=== PATIENT | male | born 1955 | race Caucasian/White ===

== ENCOUNTER 2018-03-30 07:47 | Day surgery (SDC) | payer OTHER ==
[2018-03-30] MEDS ORDERED: ASPIRIN EC 325 MG TAB PO ONE (07:49)
[2018-03-30] MEDS ORDERED: diphenhydrAMINE 25 MG CAP PO ONE (07:49)
[2018-03-30] MEDS ORDERED: FAMOTIDINE 20 MG TAB PO ONE (07:49)
[2018-03-30] MEDS ORDERED: DIAZEPAM 5 MG TAB PO ONE (07:49)
[2018-03-30] MEDS ORDERED: NS 1,000 ML IV ONE (07:49)
--- NOTE | 2018-03-30 08:06 | CPEKG ---
Heart Rate: 65 RR Interval: 923 P-R Interval: 168 QRSD Interval: 118 QT Interval: 412 QTC Interval: 429 P Sayner: 53 QRS Sayner: -43 T Wave Sayner: 53 EKG Severity - ABNORMAL ECG - EKG Impression: SINUS RHYTHM EKG Impression: LEFT ANTERIOR FASCICULAR BLOCK EKG Impression: PROBABLE LEFT VENTRICULAR HYPERTROPHY EKG Impression: INTRAVENTRICULAR CONDUCTION DELAY Electronically Signed By: Luis Mullins 30-Mar-2018 08:30:55
--- NOTE | 2018-03-30 08:22 | PDHPUP ---
History & Physical Update H&P update statement: This history and physical update is based on an assessment of the patient which was completed after admission or registration (within 24 hours), but prior to the surgery/procedure. H&P update: H&P reviewed & patient examined (Abnormal MPI suggesting anterior ischemia with history of LAD diagonal PCI history of overall 5 stents), no change in patient's condition since H&P completed
--- NOTE | 2018-03-30 08:22 | PDPROPOC ---
Sedation Plan of Care Sedation Plan of Care: vital signs stable, mental status noted, patient educated of risks, benefits, alternatives, patient can tolerate sedation ASA Classification: ASA 2 Planned drugs: fentanyl, midazolam Mallampati Score: Class 1 Mallampati Reference Image: Patient passed 3-3-2 rule?: Yes
[2018-03-30] MEDS ORDERED: LIDOCAINE 1% 300 MG/30 ML SDV ONE (08:31)
[2018-03-30] MEDS ORDERED: fentaNYL 100 MCG/2 ML INJ ONE (08:31)
[2018-03-30] MEDS ORDERED: HEPARIN 10,000 UNIT/10 ML MDV (1,000 UNIT/ML) ONE (08:32)
[2018-03-30] MEDS ORDERED: MIDAZOLAM 2 MG/2 ML VIAL ONE (08:32)
[2018-03-30] MEDS ORDERED: VERAPAMIL 5 MG/2 ML VIAL ONE (08:32)
[2018-03-30] MEDS ORDERED: IOPAMIDOL (ISOVUE 370) 100 ML BTL IV ONE (08:33)
[2018-03-30 08:45] LABS: INR 1.04 (0.83-1.16); PROTIME(PATIENT) 13.8 SEC (12.0-15.0)
[2018-03-30 09:30] LABS: PLATELET COUNT 198 10^3/uL (150-400)
[2018-03-30] MEDS ORDERED: ADENOSINE 90 MG/30 ML VIAL IV ONE (09:51)
--- NOTE | 2018-03-30 10:16 | PDDXCAT ---
Diagnostic Cath Note - . Date: 03/30/18 Photo Lab Specialist: Enrico Indication: Class I/II angina, intolerance to med therapy or failure to respond , High-risk criteria on noninvasive testing (choose option below) High-risk criteria on non-invasive testing: large, fixed perfusion defect w LV dilatation or increased lung uptake - Procedure Access: right wrist Procedure: left heart catheterization, coronary angiography, left ventriculogram - Materials Left Heart Cath size: 5F Left Heart Cath materials: pigtail, Eladio's R, other (TIGER) - Findings-Left Heart Catheterization LM: Unobstructed LAD: Proximal vessel is heavily stented with diffuse luminal irregularities up to 70%. Principal diagonal has a 90% stenosis at the ostium. LCX: Unobstructed RCA: Dominant: Luminal irregularities EDP: 15 mm of mercury LVEF: 65% Wall motion: Normal Complications: None Estimated blood loss: <50ml Closure method: TR Band Assessment: Critical proximal LAD diagonal disease associated with multiple previous proximal stents. Preserved LV systolic function. Crescendo angina with abnormal nuclear stress test Plan: FFR assessment for functional assessment of the LAD verses the diagonal. Bypass versus medical therapy. Intervention: After reviewing diagnostic angiograms it was elected to proceed with assessment of the LAD proper in the setting of nuclear imaging suggesting anterolateral ischemia not involving the apex to determine medical therapy versus surgery. Patient was administered heparin. Therapeutic ACT was confirmed. Using a 6 Vincentian JL4 guiding catheter left main coronary selectively intubated. The 0.014 FFR wire was calibrated appropriately. It was equalized outside the left main coronary artery. It was advanced across the LAD stents into the distal vessel. Patient was administered adenosine 140 micrograms/kilos per minute IV. FFR dramatically plunged to less than 0.68. Adenosine infusion was stopped. The wire was withdrawn. Final orthogonal angiogram showed JIMENA grade 3 flow. Conclusions: Diffuse LAD in stent restenosis associated with ostial diagonal. Recommend bypass grafting x2 with ongoing aggressive secondary prevention. Results discussed with patient's family. Will refer him to Dr. David Hightower. Patient Problems: Problems Problem Status Onset Angina of effort Acute Abnormal exercise myocardial perfusion study Acute History of placement of stent in LAD coronary artery Acute Coronary arteriosclerosis Acute
--- NOTE | 2018-03-30 14:30 | GCON ---
[f rep st] CONSULTATION DATE OF CONSULTATION: 03/30/2018 REFERRING PHYSICIAN: Pelon Weston MD Patient is seen at the request of Dr. Weston with the patient's permission. IMPRESSION: 1. Class 3 angina pectoris with restenosis in-stent of the LAD and diagonal. 2. Obesity. 3. Sleep apnea. 4. Hypertension. 5. Hyperlipidemia. 6. Hypothyroidism, controlled. RECOMMENDATIONS: This patient is being referred for surgical consideration with the mammary to his L AD. Risks at less than 1%, alternatives including continued medical therapy were reviewed at length with the patient and his . He is agreeable to proceed with surgery. Risk of blood transfusions 5%. He currently is on clopidogrel, which we will stop 5 days prior. CHIEF COMPLAINT: New onset of class 3 angina, relieved with rest. He does have a history of multipl e prior stents in the LAD system. PAST MEDICAL HISTORY: As stated. PAST SURGICAL HISTORY: Include throat reconstruction due to multiple infections, without aspiration, multiple orthopedic procedures, and appendectomy as a child. MEDICATIONS: On admission were clopidogrel, Cozaar, Crestor, aspirin, hydroxyzine, metoprolol, and S ynthroid. ALLERGIES: Denied. FAMILY HISTORY: Noncontributory. SOCIAL HISTORY: He does not drink. Does not smoke. 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 REVIEW OF SYSTEMS: Except for the chief complaint, he is asymptomatic and without complaints. PHYSICAL EXAM: GENERAL: Moderately obese, very pleasant middle-aged gentleman in no apparent distre ss. VITAL SIGNS: Blood pressure is 130/82, pulse 76, respirations 14, nonlabored. HEENT: Normocep halic, PERRLA, EOMI. NECK: Without bruit, adenopathy or thyromegaly. Carotid ultrasounds are pendi ng. LUNGS: Clear. ABDOMEN: Soft, nontender. Moderately protuberant. Bowel sounds are active. R ECTAL AND GENITAL: Exams were deferred. NEUROLOGICAL: He is grossly intact. Moves all extremities to command. EXTREMITIES: Pedal pulses are 2+ and symmetrical. Please see cath report for details. /[id number]/MODL
== END 2018-03-30 16:03 | disposition home or self-care (01) ==
LOC: FCATH 07:47
PROVIDERS: ATTEND Internal Medicine Interventional Cardiology
DX: T82.855A Stenosis of coronary artery stent, initial encounter (principal); I25.119 Atherosclerotic heart disease of native coronary artery with unspecified angina pectoris; E66.9 Obesity, unspecified; G47.30 Sleep apnea, unspecified; I10 Essential (primary) hypertension; E78.5 Hyperlipidemia, unspecified; E03.9 Hypothyroidism, unspecified
CPT/HCPCS: 71045; 93005; 93458; 93571; 93880; C1769; C1887; J0153; J1644; J2250; J3010; Q9967

== ENCOUNTER 2018-04-13 05:56 | Inpatient (IN) | payer OTHER ==
[~2018-04-13 05:56] MED LIST: NOREPINEPHRINE BITARTRATE 16 MG in NS 250 ML IV ONE
[2018-04-13] MEDS ORDERED: VERAPAMIL 5 MG, NITROGLYCERIN 2.5 MG, HEPARIN 500 UNIT, SODIUM BICARBONATE 0.2 MEQ in L... MISC ONE (06:00)
[2018-04-13] MEDS ORDERED: SODIUM BICARBONATE 20 MEQ, LIDOCAINE 1% 10 ML in NORMOSOL-R 1,000 ML MISC ONE (06:00)
[2018-04-13] MEDS ORDERED: PHENYLEPHRINE HCL 50 MG in NS 250 ML IV ONE (06:00)
[2018-04-13] MEDS ORDERED: INSULIN REGULAR HUMAN 100 UNIT in NS 100 ML IV ONE (06:00)
[2018-04-13] MEDS ORDERED: niCARdipine/NACL 200 ML IV ONE (06:00)
[2018-04-13] MEDS ORDERED: MANNITOL 25% 12.5 GM/50 ML VIAL IVP ONE (06:00)
[2018-04-13] MEDS ORDERED: AMINOCAPROIC ACID 5 GM/20 ML VIAL IV ONE (06:00)
--- NOTE | 2018-04-13 06:23 | PDHPUP ---
History & Physical Update H&P update statement: This history and physical update is based on an assessment of the patient which was completed after admission or registration (within 24 hours), but prior to the surgery/procedure. H&P update: H&P reviewed & patient examined, no change in patient's condition since H&P completed
[2018-04-13] MEDS ORDERED: ceFAZolin 2 GM/DEXTROSE 100 ML IV ONE (06:37)
[2018-04-13] MEDS ORDERED: MUPIROCIN 2% 22 GM OINT NS ONE (06:37)
[2018-04-13] MEDS ORDERED: CITRATE DEXTROSE SOLN 500 ML BAG MISC ONE (06:37)
[2018-04-13] MEDS ORDERED: CALCIUM CHLORIDE 1 GM/10 ML INJ ONE ×2 (06:38→06:40)
[2018-04-13] MEDS ORDERED: PROTAMINE SULFATE 50 MG/5 ML VIAL IVP ONE (06:38)
[2018-04-13] MEDS ORDERED: MILRINONE/DEXTROSE/100 ML BAG IV ONE (06:38)
[2018-04-13] MEDS ORDERED: NA BICARBONATE 50 MEQ/50 ML VIAL ONE (06:38)
[2018-04-13] MEDS ORDERED: AMIODARONE HCL 150 MG/3 ML VIAL ONE ×2 (06:39→06:41)
[2018-04-13] MEDS ORDERED: ceFAZolin 1 GM VIAL ONE (06:39)
[2018-04-13] MEDS ORDERED: LR 1,000 ML IV ONE (06:39)
[2018-04-13] MEDS ORDERED: DOPamine/DEXTROSE 400 MG/250 ML BAG IV ONE ×2 (06:39→12:23)
[2018-04-13] MEDS ORDERED: ADENOSINE 6 MG/2 ML VIAL ONE (06:39)
[2018-04-13] MEDS ORDERED: HEPARIN 10,000 UNIT/10 ML MDV (1,000 UNIT/ML) ONE ×2 (06:39→06:40)
[2018-04-13] MEDS ORDERED: niCARdipine/NACL/200 ML BAG IV ONE (06:39)
[2018-04-13] MEDS ORDERED: CITRATE DEXTROSE SOLN 500 ML BAG ONE (06:40)
[2018-04-13] MEDS ORDERED: NITROGLYCERIN/D5W 50 MG/250 ML BOTTLE IV ONE (06:40)
[2018-04-13] MEDS ORDERED: ALBUMIN 5% 250 ML BOTTLE IV ONE (06:40)
[2018-04-13] MEDS ORDERED: LIDOCAINE 2% 100 MG/5 ML SYR ONE (06:40)
[2018-04-13] MEDS ORDERED: methylPREDNISolone SOD SUCC 1 GM/8 ML VIAL ONE (06:41)
[2018-04-13] MEDS ORDERED: MAGNESIUM SULFATE 1 GM/2 ML VIAL ONE (06:41)
[2018-04-13] MEDS ORDERED: PAPAVERINE HCL 60 MG/2 ML SDV ONE (06:51)
[2018-04-13] MEDS ORDERED: VERAPAMIL 5 MG/2 ML VIAL ONE (06:51)
[2018-04-13] MEDS ORDERED: MIDAZOLAM 2 MG/2 ML VIAL IVP ONE (07:01)
--- NOTE | 2018-04-13 07:02 | PDANEPAE ---
ANE History of Present Illness cab ANE Past Medical History - Cardiovascular History Hx Hypertension: Yes Hx Arrhythmias: No Hx Chest Pain: Yes Hx Coronary Artery / Peripheral Vascular Disease: Yes Hx CHF / Valvular Disease: No Hx Palpitations: No Cardiovascular History Comment: CARDIAC STENTS X5. CAD. HYPERCHOLESTEROLEMIA. HTN - Pulmonary History Hx COPD: No Hx Asthma/Reactive Airway Disease: No Hx Recent Upper Respiratory Infection: No Hx Oxygen in Use at Home: No Hx Sleep Apnea: Yes Sleep Apnea Screening Result - Last Documented: Positive Pulmonary History Comment: POS TANNER - W/CPAP - Neurologic History Hx Cerebrovascular Accident: No Hx Seizures: No Hx Dementia: No Neurologic History Comment: MIGRAINES IN TEENS - Endocrine History Hx Diabetes: No Hypothyroid: Yes Hyperthyroid: No Endocrine History Comment: HYPOTHYROIDISM - Renal History Hx Renal Disorders: No - Liver History Hx Hepatic Disorders: No - Neurological & Psychiatric Hx Hx Neurological and Psychiatric Disorders: Yes Neurological / Psychiatric History Comment: ANXIETY IN PAST - Cancer History Hx Cancer: No - Congenital Disorder History Hx Congenital Disorders: No - GI History Hx Gastrointestinal Disorders: No - Other Health History Other Health History: DRY SKIN. NEG - Chronic Pain History Chronic Pain: No - Surgical History Prior Surgeries: CARDIAC CATH APRIL 2018. CARDIAC STENT X5 IN PAST. LGE SOULEYMANE TOES FUSED. PALLATE RECONSTRUCTION. CARPAL TUNNEL. APPENDECTOMY ANE Review of Systems Review of systems is: negative Review of Systems: - Exercise capacity METS (RN): 4 METS ANE Patient History - Allergies Allergies/Adverse Reactions: No Known Allergies Allergy (Verified 04/06/18 13:16) - Home Medications Home medications: home medication list seen and reviewed Home Medications: Aspirin [Aspirin 81mg (*)] 81 mg PO HS 03/30/18 [Last Taken 03/29/18 21:00] Levothyroxine [Synthroid 200 mcg (*)] 200 mcg PO DAILY06 03/30/18 [Last Taken Unknown] Losartan Potassium [Cozaar 25 mg (*)] 25 mg PO HS 03/30/18 [Last Taken 03/29/18 21:00] Metoprolol Succinate Xr [Toprol Xl 25 mg (*)] 12.5 mg PO HS 03/30/18 [Last Taken 03/29/18 21:00] Rosuvastatin Calcium [Crestor 20mg (*)] 10 mg PO HS 03/30/18 [Last Taken 21:00] Clopidogrel Bisulfate [Plavix (*)] 75 mg PO HS 04/06/18 [Last Taken Unknown] Herbals/Supplements -Info Only 1 each PO DAILY 04/06/18 [Last Taken Unknown] Levothyroxine [Synthroid 25 mcg (*)] 25 mcg PO DAILY06 04/06/18 [Last Taken Unknown] Loratadine [Claritin 10 mg] 10 mg PO DAILY PRN 04/06/18 [Last Taken Unknown] - NPO status NPO Status: no food or drink >8 hours NPO Since - Liquids (Date): 04/12/18 NPO Since - Liquids (Time): 23:59 NPO Since - Solids (Date): 04/12/18 NPO Since - Solids (Time): 19:00 - Smoking Hx Smoking Status: Never smoked - Family Anes Hx Family Hx Anesthesia Complications: NONE ANE Labs/Vital Signs - Vital Signs Blood Pressure: 147/84 Heart Rate: 64 Respiratory Rate: 14 O2 Sat (%): 95 Height: 170.18 cm Weight: 99.79 kg ANE Physical Exam - Airway Mallampati Score: Class 2 Mouth exam: normal dental/mouth exam - Pulmonary Pulmonary: no respiratory distress - Cardiovascular Cardiovascular: regular rate and rhythym - ASA Status ASA Status: III ANE Anesthesia Plan Anesthesia Plan: general endotracheal anesthesia Lines/Monitors: arterial line, central line, BIN
[2018-04-13] MEDS ORDERED: SUCCINYLCHOLINE CHLORIDE 200 MG/10 ML SYR IVP ONE (07:11)
[2018-04-13] MEDS ORDERED: ROCURONIUM 100 MG/10 ML VIAL ONE (07:11)
[2018-04-13] MEDS ORDERED: PHENYLEPHRINE 10 MG/ML SDV ONE (07:12)
[2018-04-13] MEDS ORDERED: LIDOCAINE 2% 5 ML SDV ONE (07:12)
[2018-04-13] MEDS ORDERED: EPINEPHrine 1 MG/ML INJ ONE (07:12)
[2018-04-13] MEDS ORDERED: PROPOFOL 200 MG/20 ML VIAL ONE (07:17)
[2018-04-13] MEDS ORDERED: fentaNYL 250 MCG/5 ML INJ ONE ×2 (07:17)
[2018-04-13] MEDS ORDERED: MIDAZOLAM 2 MG/2 ML VIAL ONE ×2 (07:30→07:44)
[2018-04-13] MEDS ORDERED: MINERAL OIL 10 ML VIAL ONE (08:43)
[2018-04-13] MEDS ORDERED: DEXMEDETOMIDINE IN 0.9 % NACL 100 ML IV SCH (11:00)
[2018-04-13] MEDS ORDERED: MEPERIDINE 25 MG/0.5 ML AMP IVP PRN (11:29)
[2018-04-13] MEDS ORDERED: POTASSIUM Cl (KCl) 50 ML IV PRN (11:29)
[2018-04-13] MEDS ORDERED: SODIUM CL NASAL 45 ML BTL EACHNARE PRN (11:29)
[2018-04-13] MEDS ORDERED: ONDANSETRON 4 MG/2 ML VIAL IVP PRN (11:29)
[2018-04-13] MEDS ORDERED: D50W 25 GM/50 ML SYR IVP PRN (11:29)
[2018-04-13] MEDS ORDERED: CEPACOL LOZENGE PO PRN (11:29)
[2018-04-13] MEDS ORDERED: POLYETHYLENE GLYCOL 3350 17 GM PKT PO PRN (11:29)
[2018-04-13] MEDS ORDERED: METOCLOPRAMIDE 10 MG/2 ML VIAL IVP PRN (11:29)
[2018-04-13] MEDS ORDERED: LACTULOSE 20 GM/30 ML UDCUP PO PRN (11:29)
[2018-04-13] MEDS ORDERED: ACETAMINOPHEN 650 MG SUPP PR PRN (11:29)
[2018-04-13] MEDS ORDERED: PANTOPRAZOLE SODIUM 40 MG VIAL IVP ONE (11:29)
[2018-04-13] MEDS ORDERED: MAGNESIUM HYDROXIDE 30 ML UDCUP PO PRN (11:29)
[2018-04-13] MEDS ORDERED: BISACODYL 10 MG SUPP PR PRN (11:29)
[2018-04-13] MEDS ORDERED: niCARdipine/NACL 200 ML IV SCH (11:30)
[2018-04-13] MEDS ORDERED: INSULIN REGULAR HUMAN 100 UNIT in NS 100 ML IV SCH (11:30)
[2018-04-13] MEDS ORDERED: NS 1,000 ML IV SCH (11:30)
--- NOTE | 2018-04-13 11:58 | PDMN ---
Medical Necessity Medical necessity: S390 CABG. 63 y/o pt w/ CABG X2, left saphenous vein graft and left internal mammary artery graft. Endoscopic vein harvest, ligation of left atrial appendage secondary coronary artery disease. Medicare Inpatient Only, 4 days.
[2018-04-13] MEDS: ALBUMIN 5% 250 ML IV PRN ×2 (12:00→13:00)
[2018-04-13] MEDS ORDERED: NALOXONE HCL 0.4 MG/ML INJ IVP PRN (12:07)
--- NOTE | 2018-04-13 12:07 | POSTANESTH ---
Post Anesthetic Evaluation Cardiovascular Status: Normal, Stable, Tx Hyper/Hypo-tension Respiratory Status: Normal, Stable, Other, See Comment (stable on vent) Level of Consciousness/Mental Status: Moderately Sleepy Pain Control: Adequate, Prn Tx Ordered Nausea/Vomiting Control: Adequate, Prn Tx Ordered Complications Possibly Related to Anesthesia: None Noted
--- NOTE | 2018-04-13 12:18 | CPEKG ---
Heart Rate: 52 RR Interval: 1154 P-R Interval: 180 QRSD Interval: 120 QT Interval: 448 QTC Interval: 417 P Reading: 26 QRS Reading: -39 T Wave Reading: -11 EKG Severity - ABNORMAL ECG - EKG Impression: SINUS RHYTHM EKG Impression: NONSPECIFIC IVCD WITH LAD Electronically Signed By: David Pierre 13-Apr-2018 16:23:20
[2018-04-13] MEDS ORDERED: ALBUMIN 5% 250 ML IV ONE (14:00)
--- NOTE | 2018-04-13 16:02 | POSTANESTH ---
Post Anesthetic Evaluation Cardiovascular Status: Other, See Comment (stable on dopamine) Respiratory Status: Normal, Stable Level of Consciousness/Mental Status: Can Participate in Eval Pain Control: Adequate, Prn Tx Ordered Nausea/Vomiting Control: Adequate, Prn Tx Ordered Complications Possibly Related to Anesthesia: None Noted
[2018-04-13] MEDS: fentaNYL 100 MCG/2 ML INJ IVP PRN ×4 (16:30→22:55)
[2018-04-13] MEDS: ceFAZolin 2 GM/DEXTROSE 100 ML IV SCH ×2 (16:59→23:24)
[2018-04-13] MEDS: SENNOSIDES/DOCUSATE SODIUM TAB PO SCH (19:23)
[2018-04-13] MEDS: MUPIROCIN 2% 22 GM OINT NS SCH (20:37)
[2018-04-14] MEDS: fentaNYL 100 MCG/2 ML INJ IVP PRN ×6 (00:22→05:52)
[2018-04-14 03:44] LABS: PLATELET COUNT 196 10^3/uL (150-400)
[2018-04-14] MEDS: HEPARIN 5,000 UNIT/0.5 ML INJ SC SCH ×3 (05:16→20:29)
[2018-04-14] MEDS: LEVOTHYROXINE 25 MCG TAB PO SCH (05:24)
[2018-04-14] MEDS ORDERED: LEVOTHYROXINE 200 MCG TAB PO SCH (06:00)
[2018-04-14] MEDS ORDERED: ALBUMIN 5% 250 ML BOTTLE IV ONE (06:27)
[2018-04-14] MEDS ORDERED: ALBUMIN 5% 250 ML IV ONE ×2 (06:30→07:40)
[2018-04-14] MEDS ORDERED: KETOROLAC 30 MG/1 ML SDV IVP STA (06:42)
--- NOTE | 2018-04-14 06:43 | SOAPPROG ---
SOAP Progress Note Assessment/Plan: POD #1: CABGx2 (LAY-LAD, SVG-diag), ligation left atrial appendage, EVH L thigh CAD s/p CABGx2 - Beta-triny, statin, ASA, plavix for secondary prevention when appropriate - Wean dopamine for MAPs 65 - Chest tubes to bulbs, FC out, AL out once off pressors - PT/OT Acute blood loss anemia on chronic anemia - No transfusions needed, monitor DVT prophylaxis - heparin SQ/SCDs Subjective: c/o chest pain and hard to take deep breaths as a result. Objective: Vital Signs Temp Pulse Resp BP Pulse Ox 38.2 C 75 25 H 126/54 H 93 04/14/18 06:00 04/14/18 06:00 04/14/18 06:00 04/14/18 06:00 04/14/18 06:00 Laboratory Results 04/14/18 03:30 04/14/18 03:30 04/13/18 04/14/18 04/15/18 05:59 05:59 05:59 Intake Total 1461 Output Total 2085 Balance -624 Physical Exam - Physical Exam General Appearance: WD/WN, alert, mild distress EENT: No scleral icterus (R), No scleral icterus (L) Neck: normal inspection Respiratory: No respiratory distress Cardiac/Chest: regular rate, rhythm Abdomen: non-tender, soft, No distended Extremities: No pedal edema Neuro/Psych: no motor/sensory deficits, alert, normal mood/affect, oriented x 3 ICD10 Worksheet Patient Problems: Problems Problem Status Onset S/P CABG x 2 Acute Abnormal exercise myocardial perfusion study Acute Angina of effort Acute Coronary arteriosclerosis Acute History of placement of stent in LAD coronary artery Acute
[2018-04-14] MEDS ORDERED: HYDROmorphONE/DILAUDID 1 MG/ML INJ IVP PRN (06:47)
[2018-04-14] MEDS: ceFAZolin 2 GM/DEXTROSE 100 ML IV SCH ×3 (09:38→23:42)
[2018-04-14] MEDS: SENNOSIDES/DOCUSATE SODIUM TAB PO SCH ×2 (09:39→20:28)
[2018-04-14] MEDS: HYDROCODONE/APAP 5/325 TAB PO PRN ×3 (09:39→17:14)
[2018-04-14] MEDS: PANTOPRAZOLE SODIUM 40 MG TAB PO SCH (09:40)
[2018-04-14] MEDS: MUPIROCIN 2% 22 GM OINT NS SCH ×2 (10:19→20:39)
[2018-04-14] MEDS ORDERED: LORazepam 2 MG/ML INJ IVP ONE (11:11)
--- NOTE | 2018-04-14 12:12 | ASMTCASEMG ---
Living Arrangements What is your living Answers: With Spouse arrangement? Who do you live with? Type Of Residence What kind of residence do Answers: House you live in? Discharge Plan Comments Coordination Status Comments Notes: Patient is a 62yo male who was admitted for coronary artery bypass graft. PT/OT have been ordered. Awaiting therapies. D/C plan TBD. CM will follow. Date Signed: 04/14/2018 12:11 PM Electronically Signed By:Juany Edwards LCSW
--- NOTE | 2018-04-14 15:23 | ASMTCMCOM ---
CM Note CM Note Notes: Therapies have cleared pt to d/c without any needs. CM available to discuss w/ [facility] team if there are any changes or request for services. Plan: Independent Date Signed: 04/14/2018 03:23 PM Electronically Signed By:SARA Ojeda
[2018-04-14] MEDS: OXYCODONE/APAP 5/325 TAB PO PRN ×2 (15:32→19:04)
[2018-04-14] MEDS: ALPRAZolam 0.25 MG TAB PO PRN (17:14)
[2018-04-14] MEDS ORDERED: FUROSEMIDE 20 MG/2 ML VIAL IVP ONE (19:03)
[2018-04-14] MEDS ORDERED: ASPIRIN 81 MG CHEWABLE TAB PO SCH (21:00)
[2018-04-14] MEDS ORDERED: CLOPIDOGREL BISULFATE 75 MG TAB PO SCH (21:00)
[2018-04-14] MEDS ORDERED: KETOROLAC 30 MG/1 ML SDV IVP ONE (22:18)
[2018-04-14] MEDS: oxyCODONE IR 5 MG TAB PO PRN (23:29)
[2018-04-14] MEDS: METOPROLOL TARTRATE 25 MG TAB PO SCH (23:30)
[2018-04-15] MEDS: traMADol 50 MG TAB PO PRN (02:26)
[2018-04-15] MEDS: oxyCODONE IR 5 MG TAB PO PRN ×4 (04:33→21:33)
[2018-04-15] MEDS: LEVOTHYROXINE 25 MCG TAB PO SCH (04:34)
[2018-04-15] MEDS: ONDANSETRON DISINTEGRATING 4 MG TAB PO PRN (04:41)
--- NOTE | 2018-04-15 06:51 | CPEKG ---
Heart Rate: 87 RR Interval: 690 P-R Interval: 140 QRSD Interval: 102 QT Interval: 340 QTC Interval: 409 P Lincoln: 59 QRS Lincoln: -11 T Wave Lincoln: 65 EKG Severity - ABNORMAL ECG - EKG Impression: SINUS RHYTHM EKG Impression: ST ELEVATION SUGGESTS PERICARDITIS Electronically Signed By: Mir Kirkland 15-Apr-2018 11:18:08
[2018-04-15] MEDS: HYDROCODONE/APAP 5/325 TAB PO PRN (06:54)
[2018-04-15] MEDS: LEVOTHYROXINE 200 MCG TAB PO SCH (06:55)
--- NOTE | 2018-04-15 07:59 | SOAPPROG ---
SOAP Progress Note Assessment/Plan: POD #2: CABGx2 (LAY-LAD, SVG-diag), ligation left atrial appendage, EVH L thigh CAD s/p CABGx2 - Beta-triny, statin, ASA, plavix for secondary prevention when appropriate - Chest tubes out, PW clipped - PT/OT Acute blood loss anemia on chronic anemia - No transfusions needed, monitor DVT prophylaxis - heparin SQ/SCDs Post-op pericarditis - Diffuse ST elevation on EKG with pleuritic type pain - High dose ASA ordered Disposition - Home Tuesday/Tuesday without services Subjective: Pain better after tubes removed. Objective: Vital Signs Temp Pulse Resp BP Pulse Ox 37.1 C 81 18 131/72 H 93 04/15/18 07:57 04/15/18 07:57 04/15/18 07:57 04/15/18 07:57 04/15/18 07:57 Laboratory Results 04/14/18 03:30 04/15/18 07:00 04/14/18 04/15/18 04/16/18 05:59 05:59 05:59 Intake Total 1461 2387 Output Total 2085 1095 150 Balance -624 1292 -150 Physical Exam - Physical Exam General Appearance: WD/WN, alert, no apparent distress EENT: No scleral icterus (R), No scleral icterus (L) Neck: normal inspection Respiratory: No respiratory distress Abdomen: non-tender, soft, No distended Skin: normal color, warm/dry Extremities: pedal edema Neuro/Psych: no motor/sensory deficits, alert, normal mood/affect, oriented x 3 ICD10 Worksheet Patient Problems: Problems Problem Status Onset S/P CABG x 2 Acute Abnormal exercise myocardial perfusion study Acute Angina of effort Acute Coronary arteriosclerosis Acute History of placement of stent in LAD coronary artery Acute
[2018-04-15] MEDS: METOPROLOL TARTRATE 25 MG TAB PO SCH ×2 (08:39→20:40)
[2018-04-15] MEDS: ASPIRIN 325 MG TAB PO SCH ×4 (08:40→23:25)
[2018-04-15] MEDS: SENNOSIDES/DOCUSATE SODIUM TAB PO SCH ×2 (08:40→20:40)
[2018-04-15] MEDS: ENOXAPARIN 40 MG/0.4 ML SYR SC SCH (08:40)
[2018-04-15] MEDS: PANTOPRAZOLE SODIUM 40 MG TAB PO SCH (08:41)
[2018-04-15] MEDS: MUPIROCIN 2% 22 GM OINT NS SCH (08:53)
[2018-04-15] MEDS ORDERED: LORazepam 1 MG TAB PO PRN (09:00)
[2018-04-15] MEDS: FUROSEMIDE 40 MG TAB PO SCH (10:08)
[2018-04-15] MEDS: POTASSIUM CL 20 MEQ TAB PO SCH (10:08)
[2018-04-16] MEDS: oxyCODONE IR 5 MG TAB PO PRN ×5 (02:21→22:28)
[2018-04-16] MEDS: LEVOTHYROXINE 25 MCG TAB PO SCH (05:54)
[2018-04-16] MEDS: LEVOTHYROXINE 200 MCG TAB PO SCH (05:54)
[2018-04-16] MEDS: ASPIRIN 325 MG TAB PO SCH ×4 (05:54→23:09)
[2018-04-16] MEDS: ENOXAPARIN 40 MG/0.4 ML SYR SC SCH (07:21)
[2018-04-16] MEDS: SENNOSIDES/DOCUSATE SODIUM TAB PO SCH ×2 (07:21→20:36)
[2018-04-16] MEDS: METOPROLOL TARTRATE 25 MG TAB PO SCH (07:22)
[2018-04-16] MEDS: FUROSEMIDE 40 MG TAB PO SCH (07:22)
[2018-04-16] MEDS: PANTOPRAZOLE SODIUM 40 MG TAB PO SCH (07:22)
[2018-04-16] MEDS: POTASSIUM CL 20 MEQ TAB PO SCH (07:22)
[2018-04-16] MEDS ORDERED: FUROSEMIDE 40 MG/4 ML VIAL IVP ONE ×2 (08:35→16:13)
--- NOTE | 2018-04-16 08:37 | SOAPPROG ---
SOAP Progress Note Assessment/Plan: POD #3: CABGx2 (LAY-LAD, SVG-diag), ligation left atrial appendage, EVH L thigh CAD s/p CABGx2 - Beta-triny, statin, ASA, plavix for secondary prevention when appropriate - PT/OT Acute blood loss anemia on chronic anemia - No transfusions needed, monitor DVT prophylaxis - Heparin SQ/SCDs Post-op pericarditis - Diffuse ST elevation on EKG with pleuritic type pain - High dose ASA ordered with good effect Disposition - Home Tuesday/Tuesday without services Subjective: Pain less but still there. Denies SOB. Objective: Vital Signs Temp Pulse Resp BP Pulse Ox 37.4 C 106 H 20 140/74 H 91 L 04/16/18 03:31 04/16/18 03:31 04/16/18 03:31 04/16/18 03:31 04/16/18 03:31 Laboratory Results 04/14/18 03:30 04/15/18 07:00 04/15/18 04/16/18 04/17/18 05:59 05:59 05:59 Intake Total 2387 1850 Output Total 1095 950 Balance 1292 900 Physical Exam - Physical Exam General Appearance: WD/WN, alert, no apparent distress EENT: No scleral icterus (R), No scleral icterus (L) Neck: normal inspection Respiratory: No respiratory distress Cardiac/Chest: regular rate, rhythm Abdomen: normal bowel sounds, non-tender, soft Skin: normal color, warm/dry Extremities: pedal edema Neuro/Psych: no motor/sensory deficits, alert, normal mood/affect, oriented x 3 ICD10 Worksheet Patient Problems: Problems Problem Status Onset S/P CABG x 2 Acute Abnormal exercise myocardial perfusion study Acute Angina of effort Acute Coronary arteriosclerosis Acute History of placement of stent in LAD coronary artery Acute
[2018-04-16] MEDS ORDERED: METOPROLOL TARTRATE 25 MG TAB PO ONE (09:05)
[2018-04-16] MEDS: ALPRAZolam 0.25 MG TAB PO PRN ×2 (09:14→18:06)
[2018-04-16] MEDS ORDERED: AMIODARONE HCL 200 ML IV ONE (09:18)
[2018-04-16] MEDS ORDERED: AMIODARONE HCL 100 ML IV ONE (09:18)
--- NOTE | 2018-04-16 13:09 | ASMTCMCOM ---
CM Note CM Note Notes: Chart reviewed. Patient has been cleared for dc to home per therapies. Heart rhythm issues today, CM to follow. Plan: Likely home no needs Tuesday or Tuesday. Date Signed: 04/16/2018 01:08 PM Electronically Signed By:Rody Ojeda RN
[2018-04-16] MEDS ORDERED: METOPROLOL TARTRATE 5 MG/5 ML INJ IV ONE (13:30)
[2018-04-16] MEDS ORDERED: AMIODARONE HCL 540 MG in D5W 300 ML IV ONE (16:00)
[2018-04-16] MEDS ORDERED: METOPROLOL TARTRATE 25 MG TAB PO SCH (21:00)
[2018-04-17] MEDS: ALPRAZolam 0.25 MG TAB PO PRN (01:16)
[2018-04-17] MEDS: traMADol 50 MG TAB PO PRN ×3 (01:16→21:23)
[2018-04-17] MEDS: ASPIRIN 325 MG TAB PO SCH (05:36)
[2018-04-17] MEDS: oxyCODONE IR 5 MG TAB PO PRN (05:36)
[2018-04-17] MEDS: LEVOTHYROXINE 25 MCG TAB PO SCH (05:36)
[2018-04-17] MEDS: LEVOTHYROXINE 200 MCG TAB PO SCH (05:36)
[2018-04-17] MEDS ORDERED: AMIODARONE HCL 100 ML IV ONE (07:44)
[2018-04-17] MEDS ORDERED: METOPROLOL TARTRATE 50 MG TAB PO SCH (07:45)
--- NOTE | 2018-04-17 08:04 | SOAPPROG ---
SOAP Progress Note Assessment/Plan: POD #4: CABGx2 (LAY-LAD, SVG-diag), ligation left atrial appendage, EVH L thigh CAD s/p CABGx2 - Beta-triny, statin, ASA, plavix for secondary prevention - PT/OT Acute blood loss anemia on chronic anemia - No transfusions needed, monitor DVT prophylaxis - Heparin SQ/SCDs Post-op pericarditis - Diffuse ST elevation on EKG with pleuritic type pain - High dose ASA ordered with good effect Post-op paroxysmal atrial fibrillation - Continue beta-triny/amiodarone - AC held as on high-dose ASA Disposition - Plan once medically stable Subjective: No complaints. Hasn't been walking as was told not to. Objective: Vital Signs Temp Pulse Resp BP Pulse Ox 36.8 C 65 18 127/85 H 94 04/17/18 07:52 04/17/18 07:52 04/17/18 07:52 04/17/18 07:52 04/17/18 07:52 Laboratory Results 04/17/18 05:50 04/17/18 05:50 04/16/18 04/17/18 04/18/18 05:59 05:59 05:59 Intake Total 1850 854 Output Total 950 1900 Balance 900 -1046 Physical Exam - Physical Exam General Appearance: WD/WN, alert, no apparent distress EENT: No scleral icterus (R), No scleral icterus (L) Neck: normal inspection Respiratory: No respiratory distress Cardiac/Chest: irregularly irregular Abdomen: non-tender, soft, No distended Skin: normal color, warm/dry Extremities: pedal edema Neuro/Psych: no motor/sensory deficits, alert, normal mood/affect, oriented x 3 ICD10 Worksheet Patient Problems: Problems Problem Status Onset S/P CABG x 2 Acute Abnormal exercise myocardial perfusion study Acute Angina of effort Acute Coronary arteriosclerosis Acute History of placement of stent in LAD coronary artery Acute
[2018-04-17] MEDS: SENNOSIDES/DOCUSATE SODIUM TAB PO SCH ×2 (08:36→21:04)
[2018-04-17] MEDS: POTASSIUM CL 20 MEQ TAB PO SCH ×2 (08:36→21:05)
[2018-04-17] MEDS: FUROSEMIDE 40 MG/4 ML VIAL IVP SCH ×2 (08:36→15:14)
[2018-04-17] MEDS: METOPROLOL TARTRATE 50 MG TAB PO SCH ×2 (08:36→21:06)
[2018-04-17] MEDS: ENOXAPARIN 40 MG/0.4 ML SYR SC SCH (08:36)
[2018-04-17] MEDS: PANTOPRAZOLE SODIUM 40 MG TAB PO SCH (08:36)
[2018-04-17] MEDS: APIXABAN 5 MG TAB PO SCH ×2 (09:39→21:06)
[2018-04-17] MEDS: AMIODARONE HCL 200 MG TAB PO SCH ×2 (09:39→21:05)
[2018-04-17] MEDS: COLCHICINE 0.6 MG CAP/TAB PO SCH ×2 (09:39→21:07)
[2018-04-17] MEDS: ACETAMINOPHEN 325 MG TAB PO PRN ×2 (10:33→18:48)
[2018-04-17] MEDS ORDERED: DILTIAZEM 25 MG/5 ML VIAL IVP ONE (10:37)
--- NOTE | 2018-04-17 15:32 | ECHO ---
[email or web address] [address] [address] Main: [phone] Fax: Transthoracic Echocardiogram Name: ISIAH COLEY MR#: [id number] Study Date: 04/17/2018 Study Time: 12:26 PM Date of : 1955 Age: 62 year(s) Height: ( ) Weight: ( ) BSA: Gender: Male Examination: Limited Echo Indication: R/O pericardial effusion, post CABG Image Quality: Contrast: Requested by: Anam Hdz BP: 119 mmHg/81 mmHg Heart Rate: Rhythm: Indication: R/O pericardial effusion, post CABG Procedure Staff Tissue Inserter: Shannon De Anda [facility] Reading Physician: Pelon Weston MD Requesting Provider: Conclusions: Ejection fraction 55%. Measurements: Chambers Valvular Assessment AV/MV Valvular Assessment TV/PV Normal Normal Normal Name Value Range Name Value Range Name Value Range EF Range: 50-55 % Continued Measurements: Findings: The ejection fraction is estimated to be 50-55 %. Pericardium: Left side pleural effusion. Trivial pericardial effusion.. (No Signature Object) Patient: ISIAH COLEY Study Date: 04/17/2018 Page 1 of 1 12:26 PM [id number]
[2018-04-18] MEDS: ACETAMINOPHEN 325 MG TAB PO PRN (02:36)
[2018-04-18] MEDS: ALPRAZolam 0.25 MG TAB PO PRN ×2 (02:36→13:41)
[2018-04-18] MEDS: traMADol 50 MG TAB PO PRN ×2 (06:28→21:38)
[2018-04-18] MEDS: LEVOTHYROXINE 25 MCG TAB PO SCH (06:30)
[2018-04-18] MEDS: LEVOTHYROXINE 200 MCG TAB PO SCH (06:30)
--- NOTE | 2018-04-18 07:53 | SOAPPROG ---
SOAP Progress Note Assessment/Plan: POD #5: CABGx2 (LAY-LAD, SVG-diag), ligation left atrial appendage, EVH L thigh CAD s/p CABGx2 - Beta-triny, statin, ASA, secondary prevention - PT/OT - Plavix to resume once Eliquis stopped Acute blood loss anemia on chronic anemia - No transfusions needed, monitor DVT prophylaxis - Eliquis/SCDs Post-op pericarditis - Diffuse ST elevation on EKG with pleuritic type pain - Continue Col[place]icine Post-op paroxysmal atrial fibrillation - Continue beta-triny/amiodarone/Eliquis Disposition - Home once medically stable Subjective: Feeling better today. Objective: Vital Signs Temp Pulse Resp BP Pulse Ox 36.5 C 75 19 146/79 H 97 04/18/18 03:18 04/18/18 03:18 04/18/18 03:18 04/18/18 03:18 04/18/18 03:18 Laboratory Results 04/17/18 05:50 04/17/18 05:50 04/17/18 04/18/18 04/19/18 05:59 05:59 05:59 Intake Total 854 650 Output Total 1900 2795 Balance -1046 -1275 Physical Exam - Physical Exam General Appearance: WD/WN, alert, no apparent distress EENT: No scleral icterus (R), No scleral icterus (L) Neck: normal inspection Respiratory: No respiratory distress Cardiac/Chest: regular rate, rhythm Abdomen: non-tender, soft, No distended Skin: normal color, warm/dry Extremities: pedal edema Neuro/Psych: no motor/sensory deficits, alert, normal mood/affect, oriented x 3 ICD10 Worksheet Patient Problems: Problems Problem Status Onset S/P CABG x 2 Acute Abnormal exercise myocardial perfusion study Acute Angina of effort Acute Coronary arteriosclerosis Acute History of placement of stent in LAD coronary artery Acute
[2018-04-18] MEDS: SENNOSIDES/DOCUSATE SODIUM TAB PO SCH (10:01)
[2018-04-18] MEDS: FUROSEMIDE 40 MG/4 ML VIAL IVP SCH (10:01)
[2018-04-18] MEDS: ASPIRIN 81 MG CHEWABLE TAB PO SCH (10:01)
[2018-04-18] MEDS: POTASSIUM CL 20 MEQ TAB PO SCH ×2 (10:01→10:40)
[2018-04-18] MEDS: PANTOPRAZOLE SODIUM 40 MG TAB PO SCH (10:01)
[2018-04-18] MEDS: AMIODARONE HCL 200 MG TAB PO SCH ×2 (10:06→21:27)
[2018-04-18] MEDS: METOPROLOL TARTRATE 50 MG TAB PO SCH ×2 (10:06→21:28)
[2018-04-18] MEDS: APIXABAN 5 MG TAB PO SCH ×2 (10:06→21:28)
[2018-04-18] MEDS: COLCHICINE 0.6 MG CAP/TAB PO SCH ×2 (10:06→21:28)
[2018-04-18] MEDS: METOLAZONE 5 MG TAB PO SCH (10:13)
[2018-04-18] MEDS: oxyCODONE IR 5 MG TAB PO PRN (14:30)
[2018-04-18] MEDS: FUROSEMIDE 100 MG/10 ML VIAL IVP SCH (15:14)
[2018-04-18] MEDS ORDERED: MAGNESIUM CITRATE 300 ML BOTTLE PO ONE (16:24)
[2018-04-18] MEDS: ONDANSETRON DISINTEGRATING 4 MG TAB PO PRN (18:14)
[2018-04-18] MEDS: POTASSIUM CL 20 MEQ/15 ML UDCUP PO SCH (21:38)
[2018-04-19] MEDS: ACETAMINOPHEN 325 MG TAB PO PRN (01:45)
[2018-04-19] MEDS: SENNOSIDES/DOCUSATE SODIUM TAB PO SCH ×3 (03:18→20:19)
[2018-04-19] MEDS: POTASSIUM CL 20 MEQ TAB PO SCH (03:22)
[2018-04-19] MEDS: LEVOTHYROXINE 25 MCG TAB PO SCH (05:33)
[2018-04-19] MEDS: LEVOTHYROXINE 200 MCG TAB PO SCH (05:33)
[2018-04-19] MEDS: traMADol 50 MG TAB PO PRN ×2 (05:33→20:20)
--- NOTE | 2018-04-19 07:18 | SOAPPROG ---
SOAP Progress Note Assessment/Plan: POD #6: CABGx2 (LAY-LAD, SVG-diag), ligation left atrial appendage, EVH L thigh CAD s/p CABGx2 - Beta-triny, statin, ASA, secondary prevention - PT/OT - Plavix to resume once Eliquis stopped Acute blood loss anemia on chronic anemia - No transfusions needed, monitor DVT prophylaxis - Eliquis/SCDs Post-op pericarditis - Diffuse ST elevation on EKG with pleuritic type pain - Continue Colchicine Post-op paroxysmal atrial fibrillation - Continue beta-triny/amiodarone/Eliquis Disposition - Home once medically stable Subjective: Denies pain/SOB. Feels like he's making progress. Objective: Vital Signs Temp Pulse Resp BP Pulse Ox 36.6 C 54 L 16 127/71 H 97 04/19/18 04:00 04/19/18 04:00 04/19/18 04:00 04/19/18 04:00 04/19/18 04:00 Laboratory Results 04/17/18 05:50 04/19/18 06:20 04/18/18 04/19/18 04/20/18 05:59 05:59 05:59 Intake Total 650 1740 Output Total 0221 6626 Balance -7878 -7369 Physical Exam - Physical Exam General Appearance: WD/WN, alert, no apparent distress EENT: No scleral icterus (R), No scleral icterus (L) Neck: normal inspection Respiratory: No respiratory distress Cardiac/Chest: regular rate, rhythm Abdomen: non-tender, soft, No distended Skin: normal color, warm/dry Extremities: pedal edema Neuro/Psych: no motor/sensory deficits, alert, normal mood/affect, oriented x 3 ICD10 Worksheet Patient Problems: Problems Problem Status Onset S/P CABG x 2 Acute Abnormal exercise myocardial perfusion study Acute Angina of effort Acute Coronary arteriosclerosis Acute History of placement of stent in LAD coronary artery Acute
--- NOTE | 2018-04-19 09:46 | ASMTCMCOM ---
CM Note CM Note Notes: Per Dr. Hightower and Jad Hdz's notes, pt will d/c without any needs once medically stable. No other CM needs at this time. CM available for changes. Plan: Independent Date Signed: 04/19/2018 09:45 AM Electronically Signed By:SARA Ojeda
[2018-04-19] MEDS: FUROSEMIDE 100 MG/10 ML VIAL IVP SCH ×2 (10:15→15:20)
[2018-04-19] MEDS: POTASSIUM CL 20 MEQ/15 ML UDCUP PO SCH ×2 (10:15→20:18)
[2018-04-19] MEDS: METOLAZONE 5 MG TAB PO SCH (10:15)
[2018-04-19] MEDS: AMIODARONE HCL 200 MG TAB PO SCH ×2 (10:16→20:17)
[2018-04-19] MEDS: COLCHICINE 0.6 MG CAP/TAB PO SCH ×2 (10:16→20:17)
[2018-04-19] MEDS: METOPROLOL TARTRATE 50 MG TAB PO SCH ×2 (10:17→20:17)
[2018-04-19] MEDS: PANTOPRAZOLE SODIUM 40 MG TAB PO SCH (10:17)
[2018-04-19] MEDS: APIXABAN 5 MG TAB PO SCH ×2 (10:17→20:17)
[2018-04-19] MEDS: ASPIRIN 81 MG CHEWABLE TAB PO SCH (10:18)
[2018-04-19] MEDS: ONDANSETRON DISINTEGRATING 4 MG TAB PO PRN (20:16)
[2018-04-19] MEDS: oxyCODONE IR 5 MG TAB PO PRN ×2 (20:19→23:57)
[2018-04-19] MEDS: ALPRAZolam 0.25 MG TAB PO PRN (20:37)
[2018-04-19] MEDS ORDERED: ROSUVASTATIN CALCIUM 20 MG TAB PO SCH (21:00)
[2018-04-20] MEDS: traMADol 50 MG TAB PO PRN ×2 (02:17→08:08)
[2018-04-20] MEDS: oxyCODONE IR 5 MG TAB PO PRN (03:52)
[2018-04-20 04:25] VITALS: BP 129/69
[2018-04-20] MEDS: LEVOTHYROXINE 25 MCG TAB PO SCH (05:53)
[2018-04-20] MEDS: LEVOTHYROXINE 200 MCG TAB PO SCH (05:53)
--- NOTE | 2018-04-20 06:50 | SOAPPROG ---
SOAP Progress Note Assessment/Plan: POD #7: CABGx2 (LAY-LAD, SVG-diag), ligation left atrial appendage, EVH L thigh CAD s/p CABGx2 - Beta-triny, statin, ASA, secondary prevention - PT/OT - Plavix to resume once Eliquis stopped Acute blood loss anemia on chronic anemia - No transfusions needed, monitor DVT prophylaxis - Eliquis/SCDs Post-op pericarditis - Diffuse ST elevation on EKG with pleuritic type pain - Continue Colchicine Post-op paroxysmal atrial fibrillation - Continue beta-triny/amiodarone/Eliquis Disposition - Home today Subjective: Foot pain last night has resolved. Ready to go home. Objective: Vital Signs Temp Pulse Resp BP Pulse Ox 36.8 C 65 16 129/69 H 92 04/20/18 04:00 04/20/18 04:00 04/20/18 04:00 04/20/18 04:00 04/20/18 04:00 Laboratory Results 04/17/18 05:50 04/19/18 06:20 04/19/18 04/20/18 04/21/18 05:59 05:59 05:59 Intake Total 1740 2100 Output Total 4525 3550 Balance -2785 -1450 Physical Exam - Physical Exam General Appearance: WD/WN, alert, no apparent distress EENT: No scleral icterus (R), No scleral icterus (L) Neck: normal inspection Respiratory: No respiratory distress Cardiac/Chest: regular rate, rhythm Abdomen: non-tender, soft, No distended Skin: normal color, warm/dry Extremities: pedal edema Neuro/Psych: no motor/sensory deficits, alert, normal mood/affect, oriented x 3 ICD10 Worksheet Patient Problems: Problems Problem Status Onset S/P CABG x 2 Acute Abnormal exercise myocardial perfusion study Acute Angina of effort Acute Coronary arteriosclerosis Acute History of placement of stent in LAD coronary artery Acute
[2018-04-20] MEDS: AMIODARONE HCL 200 MG TAB PO SCH (08:08)
[2018-04-20] MEDS: ASPIRIN 81 MG CHEWABLE TAB PO SCH (08:09)
[2018-04-20] MEDS: METOPROLOL TARTRATE 50 MG TAB PO SCH (08:09)
[2018-04-20] MEDS: PANTOPRAZOLE SODIUM 40 MG TAB PO SCH (08:09)
[2018-04-20] MEDS: COLCHICINE 0.6 MG CAP/TAB PO SCH (08:09)
[2018-04-20] MEDS: APIXABAN 5 MG TAB PO SCH (08:09)
[2018-04-20] MEDS: SENNOSIDES/DOCUSATE SODIUM TAB PO SCH (08:19)
[2018-04-20] MEDS ORDERED: FUROSEMIDE 40 MG TAB PO SCH (09:00)
[2018-04-20] MEDS ORDERED: POTASSIUM CL 20 MEQ TAB PO SCH (09:00)
--- NOTE | 2018-04-20 13:14 | PDHOMEO2F ---
Home Oxygen Face to Face Home Orders: I certify that a physician or a nurse practitioner or physician's credit assistant has had a [id number] encounter with this patient on the date of this order due to the diagnosis listed, which relates to the primary reason the patient requires home oxygen. Alternative treatments have been tried, or considered, and deemed ineffective. It is anticipated that supplemental oxygen will result in improvement with treatment. Home oxygen qualifying diagnosis: hypoxemia, SOB, CAD, afib, atlectasis, pleural effsions, obesity SpO2 on room air (%): 86 Frequency of home oxygen needed: continuous Home oxygen liters per minute: 1 Home oxygen delivery device: nasal cannula Concentrator: Yes E-tanks for mobility and back up: Yes If ordering portable O2, is the patient mobile in the home?: Yes I certify that, based on these findings, the home oxygen is medically necessary for this patient for the following length of time. Length of time home oxygen needed: 1 month
--- NOTE | 2018-04-20 14:05 | PDDCSUM ---
Discharge Summary Discharge Summary: ADMISSION DATE: 04/13/18 DISCHARGE DATE: 04/20/18 DISCHARGE DIAGNOSES 1. CAD 2. Acute blood loss anemia 3. Post-operative paroxysmal atrial fibrillation 4. Post-operative pericarditis PROCEDURES 04/13/18, David Hightower: 1. CABGx2 (LAY-LAD, SVG-diag) 2. Ligation left atrial appendage 3. EVH left thigh HOSPITAL COURSE BY PROBLEM LIST 1. CAD - stable s/p CABGx2. Continue beta-triny, aspirin, and statin for secondary prevention. Plavix to start once Eliquis stopped. 2. Acute blood loss anemia - no transfusions needed. 3. Post-operative paroxysmal atrial fibrillation - conversion to SR with amiodarone and beta-triny. Eliquis started for anticoagulation. 4. Post-operative pericarditis - high dose ASA started with good effect and transitioned to Colchicine once Eliquis started. Colchicine duration 1 month. CONDITION Good DISPOSITION Home, self-care ACTIVITY Pt was instructed on sternal precautions, activity limitations, and which problems to call [facility] with. Please see Discharge Plan in chart for specifics. DISCHARGE MEDICATIONS Continue: Aspirin [Aspirin 81mg (*)] 81 mg PO HS Levothyroxine [Synthroid 225 mcg (*)] 200 mcg PO DAILY06 Rosuvastatin Calcium [Crestor 20mg (*)] 10 mg PO HS Herbals/Supplements -Info Only 1 each PO DAILY Loratadine [Claritin 10 mg] 10 mg PO DAILY PRN New: ALPRAZolam [Xanax 0.25 MG (*)] 0.25 mg PO BID PRN #14 Acetaminophen [Tylenol 325mg (*)] 325 - 650 mg PO Q4HRS PRN Amiodarone HCl [Pacerone (*)] 200 mg PO BID #44 (twice daily for 7 days then once daily for 30 days) Apixaban [Eliquis] 5 mg PO BID Colchicine [Colchicine (*)] 0.6 mg PO BID 30 Days Furosemide [Lasix 40 MG (*)] 40 mg PO BID Metoprolol Tartrate [Lopressor 50 mg (*)] 50 mg PO BID Potassium Cl [Klor-Con 20 meq (*)] 20 meq PO BID traMADol [Ultram 50 mg (*)] 50 mg PO Q6HRS PRN #20 Stop: Plavix, Losartan, Ativan PENDING STUDIES/LABS 1. CXR prior to surgical follow-up FOLLOW-UP 1. David Hightower, 04/27/18, 9:30 AM
--- NOTE | 2018-05-01 10:32 | GOP ---
[f rep st] OPERATIVE REPORT DATE OF OPERATION: 04/14/2018 SURGEON: David Hightower DO FRANCHISE SPECIALIST: Anam Hdz PA-C. ANESTHESIOLOGIST: Bryan Adams MD. PREOPERATIVE DIAGNOSIS: Arteriosclerotic heart disease. POSTOPERATIVE DIAGNOSIS: Arteriosclerotic heart disease. PROCEDURE PERFORMED: 1. Coronary artery bypass grafting x2 with left internal mammary artery to the left anterior descend ing and saphenous vein graft to the diagonal. 2. Ligation of left atrial appendage. 3. Endoscopic vein harvest, left leg. FINDINGS: The patient was noted to have high-grade proximal LAD and diagonal disease, was referred f or surgical intervention. Consent was obtained. DESCRIPTION OF PROCEDURE: He was brought to the operating room, intubated, monitoring lines were sahara nas. He was prepped and draped in sterile classical manner. Sternotomy was performed. The mammary and vein were harvested simultaneously. Both conduits were of excellent quality. Pericardium was op ened. He was heparinized and cannulated in a standard fashion. Bypass was begun. A cardioplegic ar rest was obtained with antegrade cardioplegia, topical hypothermia, and systemic cooling. All distal s and proximals were performed with a crossclamp on. We then ligated the left atrial appendage with Endoloops x3 and then transected the appendage tip to confirm complete occlusion. No bleeding was en countered. The crossclamp was removed with suction on the ascending aortic vent. Spontaneous cardia c activity was noted to resume. The patient was rewarmed, weaned from bypass. Heparin was reversed with protamine. Cannulae were removed and oversewn. Two ventricular pacing wires, 2 mediastinal gerard ins were placed. Thymic fat and pericardium were closed. Chest was closed in standard fashion. The patient was returned to ICU, extubated, in stable condition. /[id number]/MODL
== END 2018-04-20 14:48 | disposition home or self-care (01) | DRG 236 ==
LOC: F2N 05:56 → EEVIPCON 07:15 → F2N 11:42 → F2W 04-14 12:53
PROVIDERS: ADMIT Thoracic Surgery (Cardiothoracic Vascular Surgery); ATTEND Thoracic Surgery (Cardiothoracic Vascular Surgery)
PROC: 02L70ZK Occlusion of Left Atrial Appendage, Open Approach (ICD-10-PCS; principal; 2018-04-13 07:15)
PROC: 5A1221Z Performance of Cardiac Output, Continuous (ICD-10-PCS; principal; 2018-04-13 07:15)
PROC: 02100Z9 Bypass Coronary Artery, One Artery from Left Internal Mammary, Open Approach (ICD-10-PCS; principal; 2018-04-13 07:15)
PROC: 021009W Bypass Coronary Artery, One Artery from Aorta with Autologous Venous Tissue, Open Approach (ICD-10-PCS; principal; 2018-04-13 07:15)
PROC: 06BQ4ZZ Excision of Left Saphenous Vein, Percutaneous Endoscopic Approach (ICD-10-PCS; principal; 2018-04-13 07:15)
PROC: 30233N1 Transfusion of Nonautologous Red Blood Cells into Peripheral Vein, Percutaneous Approach (ICD-10-PCS; 2018-04-13 07:15)
DX: I25.10 Atherosclerotic heart disease of native coronary artery without angina pectoris (principal); D62 Acute posthemorrhagic anemia; I30.9 Acute pericarditis, unspecified; I48.0 Paroxysmal atrial fibrillation; I10 Essential (primary) hypertension; Z95.5 Presence of coronary angioplasty implant and graft; E78.00 Pure hypercholesterolemia, unspecified; G47.33 Obstructive sleep apnea (adult) (pediatric); E03.9 Hypothyroidism, unspecified
CPT/HCPCS: 82435-PO; 82565-PO; 82947-PO; 83605-PO; 84132-PO; 84295-PO; 84520-PO; 85014-PO; 92526-GN; 92610-GN; 97116-GP; 97162-GP; 97165-GO; 97530-GO; 97530-GP; 97535-GO; J0153; J0171; J0282; J0330; J0690; J1170; J1265; J1644; J1650; J1815; J1885; J1940; J2001; J2060; J2150; J2250; J2260; J2270; J2370; J2405; J2440; J2704; J2720; J2930; J3010; J3475; J7060; P9041

== ENCOUNTER → 2018-04-28 | Outpatient (CLI) | payer OTHER | LOC: FIMAGING 10:02 | PROVIDERS: ATTEND Thoracic Surgery (Cardiothoracic Vascular Surgery) | DX: J90 Pleural effusion, not elsewhere classified (principal); Z95.1 Presence of aortocoronary bypass graft ==

== ENCOUNTER 2018-08-19 03:01 | Observation (INO) | payer OTHER ==
--- NOTE | 2018-08-19 03:29 | EDPHY ---
H & P Stated Complaint: passing a gallstone pt is having RUQ abd pain Time Seen by Provider: 08/19/18 03:24 HPI/ROS: Chief Complaint: Abdominal pain HPI: 63-year-old male complaining of right upper quadrant abdominal pain which woke at 12:30 p.m. This morning. He had a similar episode a week ago when he is in [place]. At that time he had a CT scan which showed gallstones. He has been taking hydrocodone with some relief. He has not had this severe pain for the last week. He has never had these symptoms before these 2 episodes. No fevers or chills. Some nausea no vomiting. No diarrhea or constipation. Pain is a 10/10. There are no aggravating or alleviating factors. It is in the right upper quadrant radiating to his back. No urinary urgency or frequency. ROS: 10 systems were reviewed and were negative except those elements noted in the HPI. PMH: Denies Social History: No smoking Family History: non-contributory Physical Exam: Gen: Awake, Alert, No Distress HEENT: Nose: no rhinorrhea Eyes: PERRLA, EOMI Mouth: Moist mucosa Neck: Supple, no JVD Chest: nontender, lungs clear to auscultation Heart: S1, S2 normal, no murmur Abd: Soft, patient has right upper quadrant tenderness with positive Talavera sign Back: no CVA tenderness, no midline tenderness Ext: no edema, non-tender Skin: no rash Neuro: CN II-XII intact, Sensation grossly intact, Strength 5/5 in bilateral upper and lower extremities - Personal History Current Tetanus/Diphtheria Vaccine: Yes Current Tetanus Diphtheria and Acellular Pertussis (TDAP): Yes - Medical/Surgical History Hx Asthma: No Hx Chronic Respiratory Disease: No Hx Diabetes: No Hx Cardiac Disease: Yes Hx Renal Disease: No Hx Cirrhosis: No Hx Alcoholism: No Hx HIV/AIDS: No Hx Splenectomy or Spleen Trauma: No Other PMH: CARDIAC STENTS X5. CHOLESTEROL ISSUES. HYPOTHYROID. CPAP AT NIGHT. CABG - Social History Smoking Status: Never smoked Constitutional: Initial Vital Signs Temperature (C) 36.3 C 08/19/18 03:03 Heart Rate 47 L 08/19/18 03:03 Respiratory Rate 18 08/19/18 03:03 Blood Pressure 156/64 H 08/19/18 03:03 O2 Sat (%) 100 08/19/18 03:03 O2 Delivery Mode Room Air Allergies/Adverse Reactions: No Known Allergies Allergy (Verified 08/19/18 03:07) Home Medications: Medication Instructions Recorded Aspirin [Aspirin 81mg (*)] 81 mg PO HS 03/30/18 Levothyroxine [Synthroid 200 mcg 200 mcg PO DAILY06 03/30/18 (*)] Rosuvastatin Calcium [Crestor 20mg 10 mg PO HS 03/30/18 (*)] Herbals/Supplements -Info Only 1 each PO DAILY 04/06/18 Levothyroxine [Synthroid 25 mcg 25 mcg PO DAILY06 04/06/18 (*)] Loratadine [Claritin 10 mg] 10 mg PO DAILY PRN 04/06/18 ALPRAZolam [Xanax 0.25 MG (*)] 0.25 mg PO BID PRN #14 tab 04/20/18 Acetaminophen [Tylenol 325mg (*)] 325 - 650 mg PO Q4HRS PRN tab 04/20/18 Amiodarone HCl [Pacerone (*)] 200 mg PO BID #44 tab 04/20/18 Apixaban [Eliquis] 5 mg PO BID #60 tab 04/20/18 Colchicine [Colchicine (*)] 0.6 mg PO BID 30 Days #60 ea 04/20/18 Furosemide [Lasix 40 MG (*)] 40 mg PO BID #60 tab 04/20/18 Levothyroxine [Synthroid 200 mcg 200 mcg PO DAILY AT 6AM tab 04/20/18 (*)] Metoprolol Tartrate [Lopressor 50 50 mg PO BID #60 tab 04/20/18 mg (*)] Potassium Cl [Klor-Con 20 meq (*)] 20 meq PO BID #60 tab 04/20/18 traMADol [Ultram 50 mg (*)] 50 mg PO Q6HRS PRN #20 tab 04/20/18 Medical Decision Making - Diagnostics Imaging Results: Front Desk Associate quadrant ultrasound is consistent with acute cholecystitis with gallbladder wall thickening, stones in the gallbladder. Patient also has a common bile duct measuring 12 mm. Study interpreted by Dr. Avalos. ED Course/Re-evaluation: 63-year-old male with coli ystitis and possibly choledocholithiasis. I have discussed with Dr. Lincoln, general surgery. He is requesting that the patient be admitted to his service the will plan on cholecystectomy later today. - Data Points Laboratory Results: Laboratory Results 08/19/18 03:24 08/19/18 03:24 08/19/18 08/19/18 03:24 03:24 WBC 9.78 10^3/uL H 10^3/uL (3.80-9.50) RBC 4.44 10^6/uL 10^6/uL (4.40-6.38) Hgb 13.5 g/dL L g/dL (13.7-17.5) Hct 37.7 % L % (40.0-51.0) MCV 84.9 fL fL (81.5-99.8) MCH 30.4 pg pg (27.9-34.1) MCHC 35.8 g/dL g/dL (32.4-36.7) RDW 13.9 % % (11.5-15.2) Plt Count 263 10^3/uL 10^3/uL (150-400) MPV 8.9 fL fL (8.7-11.7) Neut % (Auto) 70.6 % % (39.3-74.2) Lymph % (Auto) 17.1 % % (15.0-45.0) [place] % (Auto) 8.3 % % (4.5-13.0) Eos % (Auto) 2.9 % % (0.6-7.6) Baso % (Auto) 0.7 % % (0.3-1.7) Nucleat RBC Rel Count 0.0 % % (0.0-0.2) Absolute Neuts (auto) 6.91 10^3/uL H 10^3/uL (1.70-6.50) Absolute Lymphs (auto) 1.67 10^3/uL 10^3/uL (1.00-3.00) Absolute Monos (auto) 0.81 10^3/uL H 10^3/uL (0.30-0.80) Absolute Eos (auto) 0.28 10^3/uL 10^3/uL (0.03-0.40) Absolute Basos (auto) 0.07 10^3/uL 10^3/uL (0.02-0.10) Absolute Nucleated RBC 0.00 10^3/uL 10^3/uL (0-0.01) Immature Gran % 0.4 % % (0.0-1.1) Immature Gran # 0.04 10^3/uL 10^3/uL (0.00-0.10) Sodium 142 mEq/L mEq/L (135-145) Potassium 3.7 mEq/L mEq/L (3.3-5.0) Chloride 107 mEq/L mEq/L (97-110) Carbon Dioxide 24 mEq/l mEq/l (22-31) Anion Gap 11 mEq/L mEq/L (6-14) BUN 17 mg/dL mg/dL (7-23) Creatinine 1.1 mg/dL mg/dL (0.7-1.3) Estimated GFR > 60 Glucose 129 mg/dL H mg/dL (70-100) Calcium 9.6 mg/dL mg/dL (8.5-10.4) Total Bilirubin 0.7 mg/dL mg/dL (0.1-1.4) AST 32 IU/L IU/L (17-59) ALT 30 IU/L IU/L (21-72) Alkaline Phosphatase 70 IU/L IU/L (38-126) Total Protein 7.8 g/dL g/dL (6.3-8.2) Albumin 4.5 g/dL g/dL (3.5-5.0) Lipase 146 IU/L IU/L (23-300) Medications Given: Discontinued Medications Hydromorphone HCl (Dilaudid) 0.5 mg IVP EDNOW ONE Stop: 08/19/18 03:31 Last Admin: 08/19/18 03:38 Dose: 0.5 mg Hydromorphone HCl (Dilaudid) 0.5 mg IVP EDNOW ONE Stop: 08/19/18 04:30 Last Admin: 08/19/18 04:32 Dose: 0.5 mg Sodium Chloride (Ns) 1,000 mls @ 0 mls/hr IV ONCE ONE; Wide Open PRN Reason: Protocol Stop: 08/19/18 03:31 Last Admin: 08/19/18 03:36 Dose: 1,000 mls Ondansetron HCl (Zofran) 4 mg IVP EDNOW ONE Stop: 08/19/18 03:31 Last Admin: 08/19/18 03:37 Dose: 4 mg Promethazine HCl (Phenergan) 6.25 mg IVP EDNOW ONE Stop: 08/19/18 04:24 Last Admin: 08/19/18 04:26 Dose: 6.25 mg Departure - Departure Disposition: [facility] Inpatient Acute Clinical Impression: Acute cholecystitis Condition: Fair Referrals: Brandon Key MD [Primary Care Provider] - As per Instructions
[2018-08-19] MEDS ORDERED: NS 1,000 ML IV ONE (03:30)
[2018-08-19] MEDS ORDERED: ONDANSETRON 4 MG/2 ML VIAL IVP ONE (03:30)
[2018-08-19] MEDS ORDERED: HYDROmorphONE/DILAUDID 1 MG/ML INJ IVP ONE ×3 (03:30→06:44)
[2018-08-19 03:39] LABS: PLATELET COUNT 263 10^3/uL (150-400)
[2018-08-19] MEDS ORDERED: PROMETHAZINE HCL 25 MG/ML INJ IVP ONE (04:23)
[2018-08-19] MEDS ORDERED: HYDROmorphONE/DILAUDID 1 MG/ML INJ ONE (04:28)
[2018-08-19] MEDS ORDERED: ONDANSETRON 4 MG/2 ML VIAL IVP PRN ×3 (08:56→18:42)
[2018-08-19] MEDS ORDERED: NALOXONE HCL 0.4 MG/ML INJ IVP PRN ×2 (08:56→17:51)
[2018-08-19] MEDS ORDERED: D5W 1/2 NS 1,000 ML IV SCH (09:00)
[2018-08-19] MEDS: HYDROmorphONE/DILAUDID 6 MG/30 ML PCA IV PRN (09:08)
--- NOTE | 2018-08-19 10:28 | SOAPPROG ---
FRANCIS Progress Note Assessment/Plan: Assessment: 3 male with acute cholecystitis and stones/ lfts ok/ risks and options fully discussed need to wait for eliquis to clear Plan:admit for lap vinicio 08/19/18 10:27 Objective: Vital Signs Temp Pulse Resp BP Pulse Ox 36.9 C 51 L 16 119/60 94 08/19/18 10:00 08/19/18 10:00 08/19/18 10:00 08/19/18 10:00 08/19/18 10:00 08/18/18 08/19/18 08/20/18 05:59 05:59 05:59 Intake Total 1050 Balance 1050 ICD10 Worksheet Patient Problems: Problems Problem Status Onset Acute cholecystitis Acute Abnormal exercise myocardial perfusion study Acute Angina of effort Acute Coronary arteriosclerosis Acute History of placement of stent in LAD coronary artery Acute S/P CABG x 2 Acute
--- NOTE | 2018-08-19 10:59 | GHP ---
DATE OF ADMISSION: 08/19/2018 HISTORY OF PRESENT ILLNESS: A 63-year-old male who presents with recurrent acute cholecystitis. He had a previous episode 8 or 9 days ago in [place]. He now presents with sudden pain in the right u pper quadrant. He is known to have gallstones. Ultrasound reveals thickened gallbladder with multip le stones. His LFTs are normal and he is nonicteric, but he is having severe right upper quadrant pa in radiating into his back. PAST MEDICAL HISTORY: Includes recent coronary artery bypass approximately 5 months ago. No other m ajor medical issues. SOCIAL HISTORY: Reveals he does not smoke. FAMILY HISTORY: Noncontributory. REVIEW OF SYSTEMS: Negative on a full 10-point review except as related to the HPI. ALLERGIES: None. MEDICATIONS: Synthroid, Crestor, aspirin, Xanax, amiodarone, Claritin, colchicine, Lasix, Lopressor, potassium, Ultram. He also takes Eliquis. PHYSICAL EXAMINATION: GENERAL: An alert 63-year-old male in no acute distress. He is afebrile. HE AD/NECK: Reveals no icterus. He is PERRLA. EOMs are intact. No oral lesions. NECK: Supple. No jugular distention. No adenopathy and no bruits. CHEST: Clear and symmetric. COR: Regular rhythm without murmurs. ABDOMEN: Soft. He is very tender in the right upper quadrant with fullness in th at area. Bowel sounds are present. There are no obvious hernias. GENITALIA: Normal. EXTREMITIES: Reveal full range of motion. Full pulses. NEUROLOGIC: Exam is physiologic and symmetric with int act cranial nerves. SKIN: Reveals no lesions or rashes. PSYCH: Reveals him to be alert, oriented, and cooperative. IMPRESSION: Acute cholecystitis. PLAN: Laparoscopic cholecystectomy. Risks and options have been fully discussed. We will have to w jose carlos for his Eliquis to wear-off. /[id number]/MODL
[2018-08-19] MEDS ORDERED: cefOXitin SODIUM 2 GM in NS 100 ML IV ONE (16:30)
--- NOTE | 2018-08-19 17:00 | PDANEPAE ---
ANE History of Present Illness Gallbladder dz ANE Past Medical History - Cardiovascular History Hx Hypertension: Yes Hx Arrhythmias: No Hx Chest Pain: Yes Hx Coronary Artery / Peripheral Vascular Disease: Yes Hx CHF / Valvular Disease: No Hx Palpitations: No Cardiovascular History Comment: CARDIAC STENTS X5. CAD. HYPERCHOLESTEROLEMIA. HTN - Pulmonary History Hx COPD: No Hx Asthma/Reactive Airway Disease: No Hx Recent Upper Respiratory Infection: No Hx Oxygen in Use at Home: No Hx Sleep Apnea: Yes Sleep Apnea Screening Result - Last Documented: Positive Pulmonary History Comment: POS TANNER - W/CPAP - Neurologic History Hx Cerebrovascular Accident: No Hx Seizures: No Hx Dementia: No Neurologic History Comment: MIGRAINES IN TEENS - Endocrine History Hx Diabetes: No Endocrine History Comment: HYPOTHYROIDISM - Renal History Hx Renal Disorders: No - Liver History Hx Hepatic Disorders: No - Neurological & Psychiatric Hx Hx Neurological and Psychiatric Disorders: Yes Neurological / Psychiatric History Comment: ANXIETY IN PAST - Cancer History Hx Cancer: No - Congenital Disorder History Hx Congenital Disorders: No - GI History Hx Gastrointestinal Disorders: No - Other Health History Other Health History: DRY SKIN. NEG - Chronic Pain History Chronic Pain: No - Surgical History Prior Surgeries: CARDIAC CATH APRIL 2018. CARDIAC STENT X5 IN PAST. LGE SOULEYMANE TOES FUSED. PALLATE RECONSTRUCTION. CARPAL TUNNEL. APPENDECTOMY ANE Review of Systems Review of Systems: ANE Patient History - Allergies Allergies/Adverse Reactions: No Known Allergies Allergy (Verified 08/19/18 03:07) - Home Medications Home medications: home medication list seen and reviewed Home Medications: Aspirin [Aspirin 81mg (*)] 81 mg PO DAILY 03/30/18 [Last Taken 08/18/18 09:00] Rosuvastatin Calcium [Crestor 20mg (*)] 10 mg PO DAILY 03/30/18 [Last Taken 09:00] Loratadine [Claritin 10 mg] 10 mg PO DAILY PRN 04/06/18 [Last Taken 08/17/18] Hydrocodone/Acetaminophen [[place] 5/325 (*)] 1 - 2 tab PO Q4H PRN 08/19/18 [Last Taken 08/19/18 00:30] Levothyroxine [Synthroid 112 mcg (*)] 224 mcg PO HS 08/19/18 [Last Taken 21:00] Vit A/Vit C/Vit E/Zinc/Copper [Preservision Tablet] 1 tab PO BID 08/19/18 [Last Taken 08/18/18 21:00] - NPO status NPO Status: no food or drink >8 hours NPO Since - Liquids (Date): 08/19/18 NPO Since - Liquids (Time): 00:00 NPO Since - Solids (Date): 08/19/18 NPO Since - Solids (Time): 00:00 - Anes Hx Anes Hx: no prior problems - Smoking Hx Smoking Status: Never smoked - Family Anes Hx Family Hx Anesthesia Complications: NONE ANE Labs/Vital Signs - Labs Result Diagrams: 08/19/18 03:24 08/19/18 03:24 - Vital Signs Blood Pressure: 119/56 Heart Rate: 58 Respiratory Rate: 16 O2 Sat (%): 93 Height: 170.18 cm Weight: 86.183 kg ANE Physical Exam - Airway Neck exam: FROM Mallampati Score: Class 2 Mouth exam: normal dental/mouth exam - Pulmonary Pulmonary: no respiratory distress - Cardiovascular Cardiovascular: regular rate and rhythym - ASA Status ASA Status: III, E ANE Anesthesia Plan Anesthesia Plan: general endotracheal anesthesia
[2018-08-19] MEDS ORDERED: BUPIVACAINE 0.5% 30 ML SDV ONE (17:01)
[2018-08-19] MEDS ORDERED: MIDAZOLAM 2 MG/2 ML VIAL IVP ONE (17:10)
[2018-08-19] MEDS ORDERED: MIDAZOLAM 2 MG/2 ML VIAL ONE (17:16)
[2018-08-19] MEDS ORDERED: LIDOCAINE 2% 5 ML SDV ONE (17:21)
[2018-08-19] MEDS ORDERED: fentaNYL 100 MCG/2 ML INJ ONE ×2 (17:22→18:54)
[2018-08-19] MEDS ORDERED: ROCURONIUM 50 MG/5 ML VIAL ONE (17:22)
[2018-08-19] MEDS ORDERED: PROPOFOL 200 MG/20 ML VIAL ONE (17:22)
[2018-08-19] MEDS ORDERED: ONDANSETRON 4 MG/2 ML VIAL ONE (17:47)
[2018-08-19] MEDS ORDERED: DEXAMETHASONE 4 MG/ML VIAL ONE (17:47)
[2018-08-19] MEDS ORDERED: HYDROmorphONE/DILAUDID 2 MG/ML INJ IVP PRN (17:51)
[2018-08-19] MEDS ORDERED: fentaNYL 100 MCG/2 ML INJ IVP PRN (17:51)
[2018-08-19] MEDS ORDERED: SUGAMMADEX SODIUM 200 MG/2 ML VIAL IVP ONE (18:17)
--- NOTE | 2018-08-19 18:40 | POSTOPPROG ---
Post Op Note Date of Operation: 08/19/18 Surgeon: Nick Lincoln Anesthesiologist: ALBERTO Anesthesia: GET(General Endotracheal) Pre-op Diagnosis: ACUTE CHOLECYSTITIS Post-op Diagnosis: SAME Indication: PAIN Procedure: LAP JEROD Findings: HYDROPS THICKENED GB Inf/Abcess present in the surg proc area at time of surgery?: Yes Depth: Organ Space EBL: 50-100 Complications: 0 Specimen(s): GALLBLADDER
[2018-08-19] MEDS ORDERED: HYDROmorphONE/DILAUDID 1 MG/ML INJ IVP PRN (18:42)
[2018-08-19] MEDS ORDERED: OXYCODONE/APAP 5/325 TAB PO PRN (18:42)
[2018-08-19] MEDS ORDERED: ACETAMINOPHEN 325 MG TAB PO PRN (18:44)
[2018-08-19] MEDS ORDERED: CETIRIZINE 10 MG TAB PO PRN (18:44)
[2018-08-19] MEDS ORDERED: HYDROCODONE/APAP 5/325 TAB PO PRN (18:44)
--- NOTE | 2018-08-19 18:49 | POSTANESTH ---
Post Anesthetic Evaluation Cardiovascular Status: Similar to Pre-Op Cond Respiratory Status: Similar to Pre-op Cond. Level of Consciousness/Mental Status: Alert and Oriented Pain Control: Adequate, Prn Tx Ordered Nausea/Vomiting Control: Adequate, Prn Tx Ordered Complications Possibly Related to Anesthesia: None Noted
[2018-08-19] MEDS: D5W 1/2 NS W/ 20 KCl/L 1,000 ML IV SCH (19:57)
[2018-08-19] MEDS: METOPROLOL TARTRATE 50 MG TAB PO SCH (20:10)
[2018-08-19] MEDS ORDERED: LEVOTHYROXINE 112 MCG TAB PO SCH (21:00)
[2018-08-20] MEDS: cefOXitin SODIUM 2 GM in NS 100 ML IV SCH ×3 (00:04→12:06)
[2018-08-20] MEDS: HYDROmorphONE/DILAUDID 6 MG/30 ML PCA IV PRN (02:55)
[2018-08-20] MEDS: D5W 1/2 NS W/ 20 KCl/L 1,000 ML IV SCH (04:28)
[2018-08-20 05:28] LABS: PLATELET COUNT 222 10^3/uL (150-400)
[2018-08-20] MEDS: METOPROLOL TARTRATE 50 MG TAB PO SCH (08:50)
[2018-08-20] MEDS ORDERED: ASPIRIN 81 MG CHEWABLE TAB PO SCH (09:00)
[2018-08-20] MEDS ORDERED: ROSUVASTATIN CALCIUM 20 MG TAB PO SCH (09:00)
--- NOTE | 2018-08-20 10:00 | ASMTCMCOM ---
CM Note CM Note Notes: Chart reviewed for discharge planning purposes. 63 year old male admitted with choleysistitis. S/p lap cholecystectomy. History of CABG. No current needs identified CM available should needs arise. Plan: Likely to dc independently when medically cleared for discharge. Date Signed: 08/20/2018 10:00 AM Electronically Signed By:Rody Ojeda RN
[2018-08-20 11:30] VITALS: BP 105/51
--- NOTE | 2018-08-20 12:13 | ASDISCHSUM ---
Discharge Information Plan Status:Home with No Needs Medically Cleared to Leave:08/19/2018 Discharge Date:08/19/2018 CM D/C Disposition:Home, Routine, Self-Care ADT D/C Disposition:Home, Routine, Self-Care Projected Discharge Date:08/19/2018 Transportation at D/C: Discharge Delay Reason: Follow-Up Date:08/19/2018 Discharge Slot: Final Diagnosis: Placement Information Patient Contact Information Contact Name:DAYSI Relationship: Address:[address] Work Phone: City:[place] Alternate Phone: State/Zip Code:[place] [address] Email: Financial Information Financial Class:[employer] Primary Plan Desc:[facility] Primary Plan Number:[id number] Secondary Plan Desc: Secondary Plan Number: Assessment Information [facility] CM Progress Note CM Note CM Note Notes: Chart reviewed for discharge planning purposes. 63 year old male admitted with choleysistitis. S/p lap cholecystectomy. History of CABG. No current needs identified CM available should needs arise. Plan: Likely to dc independently when medically cleared for discharge. Date Signed: 08/20/2018 10:00 AM Electronically Signed By:Rody Ojeda RN Intervention Information Intervention Type:No Admission Order Date of Service:08/19/2018 12:14 PM Patient Type:Observation Staff Member:NASRA Deleon, Jory Hours: Discipline: Severity: Comment:
--- NOTE | 2018-08-20 12:14 | ASMTLACE ---
NANCI Length of stay for Answers: 1 day current admission Comorbidities - select Answers: Coronary Artery Disease all that apply Other Notes: cholecyctitis # of Emergency department Answers: 1-2 visits in the last 6 months Score: 5 Date Signed: 08/20/2018 12:13 PM Electronically Signed By:Rody Ojeda RN
--- NOTE | 2018-08-20 12:29 | ASMTCMCOM ---
CM Note CM Note Notes: Patient medically cleared for discharge per surgery. No needs identified. CM available should needs arise. Plan: Dc home no needs. Date Signed: 08/20/2018 12:29 PM Electronically Signed By:Rody Ojeda RN
--- NOTE | 2018-08-20 13:26 | GOP ---
DATE OF OPERATION: 08/19/2018 SURGEON: Nick Lincoln MD PRODUCTION LINE WELDER: There was no life enrichment assistant. ANESTHESIA: Dr. Richmond. PREOPERATIVE DIAGNOSIS: Acute cholecystitis. POSTOPERATIVE DIAGNOSIS: Acute cholecystitis. PROCEDURE PERFORMED: LAP JEROD FINDINGS: The patient was found with a markedly dilated, infected hydrops of the gallbladder with small ducts. The gallbladder was partially necrotic in areas. ESTIMATED BLOOD LOSS: Blood loss was less than 100 cc. DESCRIPTION OF PROCEDURE: The patient was taken to the operating room where he received a satisfactory general endotracheal anesthesia by Dr. Richmond. He was placed in the supine position, prepped and draped in the usual sterile fashion. A periumbilical incision was made. A Veress needle was inserted. Pneumoperitoneum was established. A trocar was introduced, laparoscope introduced. Good visualization was obtained. Three other trocars were placed in the upper abdomen under direct vision. The gallbladder was elevated up. Adhesions were taken down. The cystic triangle was carefully dissected free. The cystic duct and cystic artery were isolated and multiply hemoclipped and divided with care to avoid injury to the common bile duct. A clear view had been established, and the gallbladder had been from the lower aspect of the hepatic fossa. The gallbladder was then dissected free from the bed of the hepatic fossa using a blunt and sharp dissection and electrocautery. Hemostasis was assured. The gallbladder was extracted through the upper midline port site and sent for pathology and culture. The wound was copiously irrigated. Hemostasis was assured. Trocars were then removed under direct vision. Trocar sites were closed with 0 Vicryl for the fascia, 4-0 Monocryl subcuticular stitch for the skin. All wounds were infiltrated Marcaine. PROCEDURE: Laparoscopic cholecystectomy. COMPLICATIONS: There were no complications. /[id number]/MODL MTDD
== END 2018-08-20 13:51 | disposition home or self-care (01) ==
LOC: F1N 07:42
PROVIDERS: ADMIT Surgery; ATTEND Surgery
PROC: 0FT44ZZ Resection of Gallbladder, Percutaneous Endoscopic Approach (ICD-10-PCS; principal; 2018-08-19 10:30)
DX: K81.0 Acute cholecystitis (principal); E86.9 Volume depletion, unspecified; E03.9 Hypothyroidism, unspecified; I25.10 Atherosclerotic heart disease of native coronary artery without angina pectoris; K82.4 Cholesterolosis of gallbladder; I10 Essential (primary) hypertension; G47.33 Obstructive sleep apnea (adult) (pediatric); Z79.01 Long term (current) use of anticoagulants; Z95.5 Presence of coronary angioplasty implant and graft; Z95.1 Presence of aortocoronary bypass graft
CPT/HCPCS: 47562; 76705; 96361; 96365; 96375; 96376; 99285; G0378; J0694; J0696; J1100; J1170; J2250; J2405; J2550; J2704; J3010